=== PATIENT | female | born 1940 | race Two or more races ===

== ENCOUNTER 2024-10-03 14:31 | Inpatient (IN) | payer OTHER, MEDICAID ==
[~2024-10-03] VITALS: Ht 160 cm; Wt 78.6 kg
[~2024-10-03 14:31] MED LIST: ATOR80TA PO; CARV3.1240 PO; DOCU-94 PO; ERGO1CAP23 PO; HYDR-4902 PO; HYDR25TA4 PO; LISI20TA56 PO; OMEP-448 PO; SERT-206 PO
[2024-10-03 14:47] VITALS: PULSE 69; RESP 21; O2SAT 93
--- NOTE | 2024-10-03 14:48 | ED.PDOC ---
History of Present Illness HPI Comments 84-year-old female who comes in with chief complaint of generalized weakness the patient had blood drawn on 10/03 and the patient was found to have a low sodium of 125. The patient was stating that she is having some weak arms for the past three days. She did also have a couple of episodes of diarrhea. She is also complaining of some mild right-sided flank pain. The patient was able to give us their entire medical history. She states that the flank pain started about three months ago. Time Seen by MD: 14:36 Reviewed Notes: Nurses Notes, Medications, Allergies (No allergies to medications) Allergies: Coded Allergies: NO KNOWN ALLERGIES (Unverified , 10/03/24) Information Source: Patient (To medications), Emergency Med Personnel Mode of Arrival: EMS Severity: Moderate Timing: Days Duration: Since onset Prehospital treatment: None Associated signs and symptoms No chest pain or shortness for breath but the patient was having some generalized weakness Past Medical History PAST MEDICAL HISTORY: High Lipids Surgical History: Hysterectomy CNA INSTRUCTOR History: No Pertinent CNA INSTRUCTOR History Family History Family History: Reviewed,noncontributory to illness Social History Smoker: Non-Smoker Alcohol: Denies ETOH Use Drugs: Denies Drug Use Lives In: [facility] Constitutional: reports: weakness; denies: chills, diaphoresis, fatigue, fever, malaise, sweats, others EENTM: denies: blurred vision, double vision, ear bleeding, ear discharge, ear drainage, ear pain, ear ringing, eye pain, eye redness, hearing loss, mouth pain, mouth swelling, nasal discharge, nose bleeding, nose congestion, nose p ain, photophobia, tearing, throat pain, throat swelling, voice changes, others Respiratory: denies: cough, hemoptysis, orthopnea, SOB at rest, shortness of breath, SOB with excertion, stridor, wheezing, others Cardiovascular: denies: chest pain, dizzy spells, diaphoresis, Dyspnea on exertion, edema, irregular heart beat, left arm pain, lightheadedness, palpitations, PND, syncope, others Gastrointestinal: reports: diarrhea; denies: abdomen distended, abdominal pain, blood streaked bowels, constipated, dysphagia, difficulty swallowing, hematemesis, melena, nausea, poor appetite, poor fluid intake, rectal bleeding, rectal pain, vomiting, others Genitourinary: denies: abnormal vagina bleeding, burning, dyspareunia, dysuria, flank pain, frequency, hematuria, incontinence, pain, , vagina discharge, urgency, others Neurological: denies: dizziness, fainting, headache, left sided numbness, left sided weakness, numbness, paresthesia, pre-existing deficit, right sided numbness, right sided weakness, seizure, speech problems, tingling, tremors, weakness, others Musculoskeletal: denies: back pain, gout, joint pain, joint swelling, muscle pain, muscle stiffness, neck pain, others Integumetry: denies: bruises, change in color, change in hair/nails, dryness, laceration, lesions, lumps, rash, wounds, others Allergic/Immunocompromised: denies: Difficulty Healing, Frequent Infections, Hives, Itching, others Hematologic/Lymphatic: denies: anemia, blood clots, easy bleeding, easy bruising, swollen glands, others Endocrine: denies: excessive hunger, excessive sweating, excessive thirst, excessive urination, flushing, intolerance to cold, intolerance to heat, unexpl ained weight gain, unexplained weight loss, others Psychiatric: denies: anxiety, bipolar disorder, depression, hopeless, panic disorder, schizophrenia, sleepless, suicidal, others Physical Exam General Appearance: Mild Distress, Obese HEENT: Normal ENT Inspection, Pharynx Normal, TMs Normal Neck: Full Range of Motion, Non-Tender, Normal, Normal Inspection Respiratory: Chest Non-Tender, Lungs Clear, No Accessory Muscle Use, No Respiratory Distress, Normal Breath Sounds Cardiovascular: No Edema, No JVD, No Murmur, No Gallop, Normal Peripheral Pulses, Regular Rate/Rhythm Breast Exam: Deferred Gastrointestinal: No Organomegaly, Non Tender, No Pulsatile Mass, Normal Bowel Sounds, Soft Genitalia: Deferred Pelvic: Deferred Rectal: Deferred Extremities: No calf tenderness, Normal capillary refill, Normal inspection, Normal range of motion, Non-tender, No pedal edema Musculoskeletal : Apperance: Normal Neurologic: Alert, busser II-XII nml as Tested, Motor Weakness, Normal Affect, Normal Mood, No Sensory Deficits Cerebellar Function: Normal Reflexes: Normal Skin: Dry, Normal Color, Warm Lymphatic: No Adenopathy Was a procedure done? Was a procedure done?: No Differential Dx Considerations may include: Electrolyte imbalance, hyponatremia, dehydration X-Ray, Labs, Meds, VS Vital Signs Date Time Temp Pulse Resp B/P (MAP) Pulse Ox O2 Delivery O2 Flow Rate FiO2 10/03/24 15:17 97.4 67 18 127/74 (91) 98 10/03/24 14:47 69 21 134/72 (92) 93 10/03/24 14:47 69 21 93 Nasal Cannula* 2 28 Lab Test 10/03/24 14:54 Range/Units White Blood Count Pending Red Blood Count Pending Hemoglobin Pending Hematocrit Pending Mean Corpuscular Volume Pending Mean Corpuscular Hemoglobin Pending Mean Corpuscular Hemoglobin Concent Pending Red Cell Distribution Width Pending Platelet Count Pending Mean Platelet Volume Pending Neutrophils (%) (Auto) Pending Lymphocytes (%) (Auto) Pending Monocytes (%) (Auto) Pending Basophils (%) (Auto) Pending Neutrophils # (Auto) Pending Lymphocytes # (Auto) Pending Monocytes # (Auto) Pending Sodium Level 127 L 136-145 mmol/L Potassium Level 4.4 3.5-5.1 mmol/L Chloride Level 94 L 98-107 mmol/L Carbon Dioxide Level 30 20-31 mmol/L Anion Gap 3 L 5-15 Blood Urea Nitrogen 24 H 9-23 mg/dL Creatinine 1.26 H 0.550-1.02 mg/dL Glomerular Filtration Rate Calc 42 >90 mL/min BUN/Creatinine Ratio 19.0 10.0-20.0 Serum Glucose 118 H 74-106 mg/dL Calcium Level 9.9 8.7-10.4 mg/dL IV Hep-Lock was established The patient's chemistry panel shows hyponatremia at 127 The BUN is 24 and the creatinine is 1.26 A renal ultrasound was done which shows: IMPRESSION: 1. Small 1.2 cm left renal cysts. 2. There is no sonographic evidence of nephrolithiasis or hydronephrosis. At this time, the patient is being admitted Time of 1ST Reevaluation: 14:47 Reevaluation 1ST: Unchanged Patient Education/Counseling: Diagnosis, Treatment, Prognosis Family Education/Counseling: No Family Present Departure 1 Departure Time of Disposition: 16:41 Impression: Primary Impression: Hyponatremia Additional Impression: Generalized weakness Disposition: 09 ADMITTED INPATIENT Admit to: Tele Condition: Fair Critical Care Note Critical Care Time?: No Stability Stability form required: Yes Unstable for transfer: Telemetry monitoring (Telemetry monitoring required), ED Physician Assesment (Clinical assesment) Heart Score Heart Score: Heart Score Response (Comments) Value History N/A 0 EKG N/A 0 Age N/A 0 Risk Factors N/A 0 Troponin N/A 0 Total 0 JALEN DRISCOLL MD Oct 03, 2024 14:48
[2024-10-03 15:22] LABS: Potassium 4.4 mmol/L (3.5-5.1)
[2024-10-03 15:23] LABS: Anion Gap 3 (5-15); Calcium 9.9 mg/dL (8.7-10.4); Carbon Dioxide 30 mmol/L (20-31)
[2024-10-03 15:33] LABS: Blood Urea Nitrogen 24 mg/dL (9-23); Chloride 94 mmol/L (98-107); Glucose 118 mg/dL (74-106); Sodium 127 mmol/L (136-145)
--- NOTE | 2024-10-03 15:50 | DVH ---
RENAL ULTRASOUND CLINICAL HISTORY: RT FLANK PAIN TECHNIQUE: Multiple ultrasound images of the kidneys and bladder were obtained. COMPARISON: None FINDINGS: The right kidney measures 8.7 cm in length. The left kidney measures 9.0 cm. There is a 1.2 cm left r enal cyst. There is no sonographic evidence of nephrolithiasis or hydronephrosis. The bladder appears within normal limits with prevoid volume measuring 101 cc. IMPRESSION: 1. Small 1.2 cm left renal cysts. 2. There is no sonographic evidence of nephrolithiasis or hydronephrosis. HS:Y
[2024-10-03 16:59] LABS: Basophils # (auto) 0 10 ^3/uL (0-0.2); Basophils % (auto) 0.9 % (0.0-2.0); Eosinophils # (auto) 0.1 10 ^3/uL (0-0.8); Eosinophils % (auto) 2.5 % (0.0-7.0); Hematocrit 29.4 % (36.0-46.0); Hemoglobin 9.6 g/dL (12.2-16.2); Lymphocytes # (auto) 1.3 10 ^3/uL (0.4-5.4); Lymphocytes % (auto) 25.2 % (10.0-50.0); Mean Corpuscular Hemoglobin 26.9 pg (28.0-32.0); Mean Corpuscular Hgb Conc. 32.6 g/dL (32.0-36.0); Mean Corpuscular Volume 82.8 fL (80.0-100.0); Monocytes # (auto) 0.4 10 ^3/uL (0-1.3); Monocytes % (auto) 8.8 % (0.0-12.0); Neutrophils # (auto) 3.2 10 ^3/uL (1.6-8.6); Neutrophils % (auto) 62.6 % (37.0-80.0); Nucleated Red Blood Cells % 0.1 %; Platelet Count (auto) 219 10^3/uL (140-450); Red Blood Cells 3.55 10^6/uL (4.0-5.20); Red Cell Distribution Width 16.4 % (11.8-14.3); White Blood Cell 5.1 10^3/uL (4.4-10.8)
[2024-10-03] MEDS: SODIUM CHLORIDE 0.9% 500 ML IV ONE (17:40)
[2024-10-03 19:26] LABS: Urine Amorphous Crystal FEW /hpf (None Seen); Urine Bacteria FEW /hpf (None Seen); Urine Blood Negative /uL (Negative); Urine Clarity Clear (Clear); Urine Color Light-Yellow (Yellow); Urine Protein, UAD Negative (Negative); Urine Squamous Epithelial Cell FEW /hpf (<5); Urine Urobilinogen Normal (Negative); Urine WBC 6 /hpf (0 - 5)
[2024-10-03] MEDS: HYDROcodone-ACET 5/325MG TAB PO ONE (19:45)
[2024-10-03 20:00] VITALS: PULSE 70; RESP 18; O2SAT 94
[2024-10-03] MEDS ORDERED: MORPHINE SULFATE INJ 2 MG/ml SYRG IV PRN (21:30)
[2024-10-03] MEDS ORDERED: ONDANSETRON HCL 4 MG/2 ML VIAL IV PRN (21:30)
[2024-10-03] MEDS ORDERED: NITROGLYCERIN 0.4 MG SL TAB SL PRN (21:30)
[2024-10-03] MEDS ORDERED: FUROSEMIDE 20 MG/2 ML VIAL IV ONE (21:30)
--- NOTE | 2024-10-03 21:31 | DVHHPRES ---
History of Present Illness Resident Creating Document: EUGENE POON RESIDENT History of Present Illness This is a 84-year-old wheel chair bound female with past medical history of hypertension, hyperlipidemia, bronchial asthma, arthritis presented to the ED from [place] post acute care due to abnormal lab. According to the patient she underwent lab work on 10/02/2024 and revealed low-sodium 125 that prompted this visit. The patient mentioned few episodes of diarrhea two days ago and after that feeling generalized weakness for last 2 days. The patient denies dizziness, headache, chest pain, productive cough, abdominal pain, nausea, vomiting, dysuria or any change in bowel habit. Past Medical History Hypertension, hyperlipidemia, bronchial asthma, arthritis Past Surgical History Lt knee surgery Family History None Smoke: No ALCOHOL: none Drugs: None Lives: Alf Review of Systems Constitutional: No: Fever, Chills, Sweats, Malaise, Other Eyes: No: Pain, Vision change, Conjunctivae inflammation, Eyelid inflammation, Other, Redness ENT: No: Ear pain, Ear discharge, Nose pain, Nose discharge, Nose congestion, Mouth pain, Mouth swelling, Throat pain, Throat swelling, Other Respiratory: Shortness of breath; No: Cough, Dry, SOB with excertion, Wheezing, Hemoptysis, Pleuritic Pain, Sputum, Wheezing, Other Cardiovascular: No: Chest Pain, Palpitations, Orthopnea, Paroxysmal Noc. Dyspnea, Edema, Lt Headedness, Other Gastrointestinal: Diarrhea; No: Nausea, Vomiting, Abdominal Pain, Constipation, Melena, Hematochezia, Other Genitourinary: No Dysuria, No Frequency, No Incontinence, No Hematuria, No Retention, No Other Musculoskeletal: No: other, neck pain, shoulder pain, arm pain, back pain, hand pain, leg pain, foot pain Skin: No: Rash, Lesions, Jaundice, Bruising, Other Neurological: No: Weakness, Numbness, Incoordination, Change in speech, Confusion, Seizures, Other Allergies: Coded Allergies: NO KNOWN ALLERGIES (Unverified , 10/03/24) Medications Current Medications Medications Dose Ordered Sig/Nuha Route Start Time Stop Time Status Last Admin Dose Admin Sodium Chloride 10 ml Q8HR IV 10/03/24 22:00 UNV Ondansetron HCl 4 mg Q4HP PRN IV 10/03/24 21:30 UNV Acetaminophen 650 mg Q6HP PRN PO 10/03/24 21:30 UNV Nitroglycerin 0.4 mg Q5MINP PRN SL 10/03/24 21:30 UNV Morphine Sulfate 2 mg Q30M PRN IV 10/03/24 21:30 UNV Albuterol 2.5 mg Q4HPRN NEB 10/04/24 02:00 UNV Ipratropium [place] 0.5 mg Q4HPRN NEB 10/04/24 02:00 UNV Exam Vital Signs Vital Signs Date Time Temp Pulse Resp B/P (MAP) Pulse Ox O2 Delivery O2 Flow Rate FiO2 10/03/24 20:00 70 18 94 Nasal Cannula* 2 28 10/03/24 19:00 132/69 (90) 10/03/24 16:00 97.9 97.9 Exam Physical examination: General Appearance: Alert, Oriented X3, Cooperative, No acute distress HEENT: Atraumatic, PERRLA, EOMI, Mucous membrane moist/pink Respiratory: Congested chest, bilateral wheezing and crackles Cardiovascular: Regular rate, Normal S1, Normal S2, No murmurs, no chest wall tenderness Abdominal: Normal bowel sounds, Soft, No tenderness, No hepatospenomegaly, No masses Extremities: No clubbing, No cyanosis, No edema, Normal pulses, No tenderness/swelling Skin: No rashes, No breakdown, No significant lesion Neuro: Normal speech, Strength at 5/5 X4 ext, Normal tone, Sensation intact. Psych/Mental Status: Mental status NL, Mood NL Labs/Xrays Labs Test 10/03/24 18:32 10/03/24 16:35 10/03/24 14:54 Range/Units Urine Color Light-yellow Yellow Urine Clarity Clear Clear Urine pH 7.0 5.0-9.0 Urine Specific [place] 1.010 1.001-1.035 Urine Protein Negative Negative Urine Ketones Negative Negative Urine Blood Negative Negative /uL Urine Nitrite Negative Negative Urine Bilirubin Negative Negative Urine Urobilinogen Normal Negative mg/dL Urine Leukocyte Esterase Negative Negative /uL Urine RBC None seen 0 - 4 /hpf Urine WBC 6 0 - 5 /hpf Urine Squamous Epithelial Cells Few <5 /hpf Urine Amorphous Crystals Few None Seen /hpf Urine Bacteria Few H None Seen /hpf Urine Osmolality 352 mOsm/kg Urine Sodium 66 40-220 mmol/L Urine Glucose Normal Normal mg/dL White Blood Count 5.1 4.4-10.8 10^3/uL Red Blood Count 3.55 L 4.0-5.20 10^6/uL Hemoglobin 9.6 L 12.2-16.2 g/dL Hematocrit 29.4 L 36.0-46.0 % Mean Corpuscular Volume 82.8 80.0-100.0 fL Mean Corpuscular Hemoglobin 26.9 L 28.0-32.0 pg Mean Corpuscular Hemoglobin Concent 32.6 32.0-36.0 g/dL Red Cell Distribution Width 16.4 H 11.8-14.3 % Platelet Count 219 140-450 10^3/uL Mean Platelet Volume 7.2 6.9-10.8 fL Neutrophils (%) (Auto) 62.6 37.0-80.0 % Lymphocytes (%) (Auto) 25.2 10.0-50.0 % Monocytes (%) (Auto) 8.8 0.0-12.0 % Eosinophils (%) (Auto) 2.5 0.0-7.0 % Basophils (%) (Auto) 0.9 0.0-2.0 % Neutrophils # (Auto) 3.2 1.6-8.6 10 ^3/uL Lymphocytes # (Auto) 1.3 0.4-5.4 10 ^3/uL Monocytes # (Auto) 0.4 0-1.3 10 ^3/uL Eosinophils # (Auto) 0.1 0-0.8 10 ^3/uL Basophils # (Auto) 0 0-0.2 10 ^3/uL Nucleated Red Blood Cells 0.1 % Sodium Level 127 L 136-145 mmol/L Potassium Level 4.4 3.5-5.1 mmol/L Chloride Level 94 L 98-107 mmol/L Carbon Dioxide Level 30 20-31 mmol/L Anion Gap 3 L 5-15 Blood Urea Nitrogen 24 H 9-23 mg/dL Creatinine 1.26 H 0.550-1.02 mg/dL Glomerular Filtration Rate Calc 42 >90 mL/min BUN/Creatinine Ratio 19.0 10.0-20.0 Serum Glucose 118 H 74-106 mg/dL Serum Osmolality 273 L 278-298 mOsm/kg Calcium Level 9.9 8.7-10.4 mg/dL Assessment/Plan Assessment/Plan Assessment and plan: # Hypervolemic hyponatremia, rule out CHF - Chest x-ray revealed pulmonary vascular congestion - BNP is not elevated - Low serum osmolality and urine sodium >40 - Ordered echo - IV Lasix 20 mg once - Monitor BMP # SUMIT likely secondary to hemodynamically mediated/ VMN - Patient was given IV normal saline 500 mL bolus - Monitor BMP # Prediabetes, HbA1C 6.1 - Counseled patient regarding weight loss, low carb diet, and lifestyle modification . Goal of care discussed with the patient for more than 20 minutes full code Plan of treatment discussed with Dr. Edgar Plan discussed with: Patient, Other My Orders Orders - EUGENE POON RESIDENT Procedure Category Date Status Time Admit ADMIT 10/03/24 Transmitted 21:21 Sodium Chloride Lock PHA 10/03/24 Logged (Saline Lock Ns) 22:00 Oxygen Per Hour RT 10/03/24 Transmitted 21:21 Ondansetron Hcl [facility] 10/03/24 Logged (Zofran) 21:30 Fall Risk Precautions [facility] 10/03/[address] 21:21 Pt Request For Service PT 10/03/24 Logged 21:21 Echo 2d Mode Cardiac US 10/03/24 Logged DOP 21:21 Acetaminophen Tablet PHA 10/03/24 Logged (Tylenol Tablet) 21:30 Nitroglycerin PHA 10/03/24 Logged Sublingual (Ntrostat 21:30 Morphine Sulfate PHA 10/03/24 Logged Injection 21:30 Oxygen By Nasal RT 10/03/24 Transmitted Cannula 21:21 Stat Ekg For Chest [facility] 10/03/24 In Process Pain 21:21 Notify Of Changes [facility] 10/03/24 In Process From Base 21:21 Blade Balancer For [facility] 10/03/24 In Process 24 Hours 21:21 Emergency Dysrhythmia [facility] 10/03/24 In Process Protocol 21:21 Rhythm Strips Once [facility] 10/03/24 In Process Every Shift 21:21 Code Status CODE 10/03/24 Transmitted 21:24 Chest Xray 1 View XY 10/03/24 Logged 21:24 B-Type Natriuretic LAB 10/03/24 Logged Peptide 21:24 Urine Creatinine LAB 10/03/24 Logged 21:24 Urine Protein LAB 10/03/24 Logged 21:24 Urine Sodium LAB 10/03/24 Logged 21:24 Urinalysis LAB 10/03/24 Logged 21:24 Albuterol Medneb PHA 10/04/24 Logged (Ventolin Medneb) 02:00 Ipratropium Medneb PHA 10/04/24 Logged (Atrovent Medneb) 02:00 Furosemide Injection PHA 10/03/24 Logged (Lasix Injection) 21:30 Date of Service: Oct 03, 2024 Billing Provider: PRAVEEN EDGAR MD Common Visit Codes: [id number] INP/OBS CARE (HIGH) Secondary Visit Codes: [id number] CARE PLAN 30 MINUTES EUGENE POON RESIDENT Oct 03, 2024 21:31 PRAVEEN EDGAR MD Oct 04, 2024 21:04
[2024-10-03] MEDS: SODIUM CHLOR 0.9% PF (SALINE LOCK) 10ML VIAL/SYR IV SCH (22:03)
--- NOTE | 2024-10-03 22:09 | DVH ---
CHEST RADIOGRAPH Indication: shortness of breath Technique: Single frontal view of the chest was obtained Comparison: None Findings/ IMPRESSION: Enlarged cardiomediastinal silhouette with adjacent reticular opacification which may represent pulmo nary vascular congestion with other etiologies not excluded. No pleural effusions. No pneumothorax.
[2024-10-03 22:10] VITALS: BP 132/69; PULSE 69; RESP 18; O2SAT 98
[2024-10-03] MEDS: MELATONIN 5 MG TAB PO ONE (22:27)
[2024-10-03 22:31] LABS: LDL Cholesterol 30 mg/dL (< 100); Triglycerides 63 mg/dL (< 150)
[2024-10-03 22:33] LABS: Cholesterol 119 mg/dL (< 200)
[2024-10-03 22:37] LABS: HDL Cholesterol 68 mg/dL (40-59)
[2024-10-03 22:44] LABS: Potassium 4.4 mmol/L (3.5-5.1)
[2024-10-03 22:45] LABS: Anion Gap 6 (5-15); Carbon Dioxide 25 mmol/L (20-31)
[2024-10-03 22:46] LABS: Calcium 9.4 mg/dL (8.7-10.4)
[2024-10-03 22:58] LABS: Blood Urea Nitrogen 26 mg/dL (9-23); Chloride 98 mmol/L (98-107); Glucose 107 mg/dL (74-106); Sodium 129 mmol/L (136-145)
[2024-10-04] VITALS (9 sets, daily range): BP systolic 112–148; BP diastolic 52–93; PULSE 66–87; RESP 18–20; TEMP 98–98.7; O2SAT 92–98
[2024-10-04] MEDS: NITROGLYCERIN 0.4 MG SL TAB SL ONE
[2024-10-04] MEDS ORDERED: MORPHINE SULFATE INJ 2 MG/ml SYRG IV ONE
[2024-10-04] MEDS: FUROSEMIDE 20 MG/2 ML VIAL IV ONE (00:44)
[2024-10-04] MEDS ORDERED: LISI2.5T47 PO (01:34)
[2024-10-04] MEDS ORDERED: SERT25TA84 PO (01:34)
[2024-10-04] MEDS ORDERED: ALBUTEROL SULF 2.5 MG/0.5ML(0.5%) NEB SOLN NEB SCH (02:00)
[2024-10-04] MEDS ORDERED: IPRATROPIUM BROM 0.5 MG/2.5ML INH SOL NEB SCH (02:00)
[2024-10-04 06:09] LABS: Urine WBC None Seen /hpf (0 - 5)
[2024-10-04 06:10] LABS: Basophils # (auto) 0.1 10 ^3/uL (0-0.2); Eosinophils # (auto) 0.1 10 ^3/uL (0-0.8); Eosinophils % (auto) 2.7 % (0.0-7.0); Hematocrit 28.8 % (36.0-46.0); Hemoglobin 9.7 g/dL (12.2-16.2); Lymphocytes # (auto) 1.6 10 ^3/uL (0.4-5.4); Lymphocytes % (auto) 33.3 % (10.0-50.0); Mean Corpuscular Hemoglobin 27.3 pg (28.0-32.0); Mean Corpuscular Hgb Conc. 33.6 g/dL (32.0-36.0); Mean Corpuscular Volume 81.4 fL (80.0-100.0); Monocytes # (auto) 0.5 10 ^3/uL (0-1.3); Monocytes % (auto) 10.3 % (0.0-12.0); Neutrophils # (auto) 2.6 10 ^3/uL (1.6-8.6); Neutrophils % (auto) 52.7 % (37.0-80.0); Nucleated Red Blood Cells % 0.1 %; Platelet Count (auto) 232 10^3/uL (140-450); Red Blood Cells 3.53 10^6/uL (4.0-5.20); Red Cell Distribution Width 16.4 % (11.8-14.3); White Blood Cell 4.9 10^3/uL (4.4-10.8)
[2024-10-04 06:15] LABS: Alanine Aminotransferase 17 U/L (7-40); Albumin 3.7 g/dL (3.2-4.8); Anion Gap 5 (5-15); Aspartate Aminotransferase 14 U/L (13-40); Bilirubin, Total 0.4 mg/dL (0.2-1.0); Blood Urea Nitrogen 22 mg/dL (9-23); Calcium 9.9 mg/dL (8.7-10.4); Carbon Dioxide 30 mmol/L (20-31); Glucose 98 mg/dL (74-106); Potassium 3.7 mmol/L (3.5-5.1); Total Protein 6.1 g/dL (5.7-8.2)
[2024-10-04 06:25] LABS: Urine Bacteria FEW /hpf (None Seen); Urine Blood 1+ /uL (Negative); Urine Clarity Clear (Clear); Urine Protein, UAD Negative (Negative); Urine Specific Gravity 1.005 (1.001-1.035); Urine Squamous Epithelial Cell FEW /hpf (<5); Urine Urobilinogen Normal (Negative); Urine pH 6.5 (5.0-9.0)
[2024-10-04 06:26] LABS: Protein, Urine 7.7 mg/dL (1-14)
[2024-10-04 06:29] LABS: Alkaline Phosphatase 135 U/L (46-116); Chloride 96 mmol/L (98-107); Sodium 131 mmol/L (136-145)
[2024-10-04 06:29] LABS: Creatinine, Urine 10.84 mg/dL (30.0-125.0)
[2024-10-04 06:30] LABS: Urine Color STRAW (Yellow)
--- NOTE | 2024-10-04 11:30 | DVHPN2 ---
Subjective looks rested/denies any cough/had fungal pneumonia 3 weeks back/no weakness or numbness/no shortness of breath Changes from previous H/P or p: No Changes Eyes: No Pain, No Vision change, No Conjunctivae inflammation, No Eyelid inflammation, No Other, No Redness ENT: No Ear pain, No Ear discharge, No Nose pain, No Nose discharge, No Nose congestion, No Mouth pain, No Mouth swelling, No Throat pain, No Throat swelling, No Other Cardiovascular: No Chest Pain, No Palpitations, No Orthopnea, No Paroxysmal Noc. Dyspnea, No Edema, No Lt Headedness, No Other Respiratory: No Cough, No Dry; Shortness of breath; No SOB with excertion, No Wheezing, No Hemoptysis, No Pleuritic Pain, No Sputum, No Other Gastrointestinal: No Nausea, No Vomiting, No Abdominal Pain; Diarrhea; No Constipation, No Melena, No Hematochezia, No Other Genitourinary: No Dysuria, No Frequency, No Incontinence, No Hematuria, No Retention, No Other Musculoskeletal: No other, No neck pain, No shoulder pain, No arm pain, No back pain, No hand pain, No leg pain, No foot pain Skin: No Rash, No Lesions, No Jaundice, No Bruising, No Other Objective Vitals Vital Signs Date Time Temp Pulse Resp B/P (MAP) Pulse Ox O2 Delivery O2 Flow Rate FiO2 10/04/24 09:10 98.7 72 18 143/76 (98) 97 98.7 10/04/24 00:10 Nasal Cannula* 1 24 Intake/Output Intake and Output 10/04/24 07:00 Intake Total 300 ml Output Total 2050 ml Balance -1750 ml Intake Oral 300 ml Output Urine Total 2050 ml General Appearance: Alert, Oriented X3, No acute distress Lungs: Clear to auscultation, Normal air movement Cardiovascular: Regular rate, Normal S1, Normal S2 Abdomen: Normal bowel sounds, Soft, No tenderness, No hepatospenomegaly Musculoskeletal: Normal sensory function, Normal motor function Neuro: Normal speech, Strength at 5/5 X4 ext, Sensation intact, Cranial nerves 3-12 NL Psych/Mental Status: Mental status NL Medications Current Medications Medications Dose Ordered Sig/Nuha Route Start Time Stop Time Status Last Admin Dose Admin Sodium Chloride 10 ml Q8HR IV 10/03/24 22:00 10/04/24 05:29 10 ML Acetaminophen 650 mg Q6HP PRN PO 10/03/24 21:30 Sodium Chloride 1,000 ml @ 60 mls/hr [id number] IV 10/04/24 10:45 Laboratory Results Laboratory Tests 10/04/24 05:35 Chemistry Test 10/03/24 14:54 10/03/24 21:45 10/04/24 05:35 Calcium Level 9.9 mg/dL (8.7-10.4) 9.4 mg/dL (8.7-10.4) 9.9 mg/dL (8.7-10.4) Albumin 3.7 g/dL (3.2-4.8) Magnesium Level 2.0 mg/dL (1.6-2.6) Total Protein 6.1 g/dL (5.7-8.2) Lipid panel Test 10/03/24 21:45 Cholesterol Level 119 mg/dL (< 200) HDL Cholesterol 68 mg/dL (40-59) H Triglycerides Level 63 mg/dL (< 150) Cardiac Markers Test 10/03/24 16:35 10/04/24 05:35 B-Type Natriuretic Peptide 64.52 pg/mL (0-100) 75.69 pg/mL (0-100) LFT Test 10/04/24 05:35 Alanine Aminotransferase (ALT) 17 U/L (7-40) Alkaline Phosphatase 135 U/L (46-116) H Aspartate Amino Transferase (AST) 14 U/L (13-40) Total Bilirubin 0.4 mg/dL (0.2-1.0) HgA1c, TSH Test 10/03/24 21:45 Hemoglobin A1c 6.1 % A1C (<5.7) H Urinalysis Test 10/03/24 18:32 10/04/24 05:38 Urine Amorphous Crystals Few /hpf (None Seen) Urine Osmolality 352 mOsm/kg Urine Color Straw (Yellow) Urine Clarity Clear (Clear) Urine pH 6.5 (5.0-9.0) Urine Specific [place] 1.005 (1.001-1.035) Urine Protein Negative (Negative) Urine Ketones Negative (Negative) Urine Blood 1+ /uL (Negative) H Urine Nitrite Negative (Negative) Urine Bilirubin Negative (Negative) Urine Urobilinogen Normal mg/dL (Negative) Urine Leukocyte Esterase Negative /uL (Negative) Urine RBC 3 /hpf (0 - 4) Urine WBC None seen /hpf (0 - 5) Urine Squamous Epithelial Cells Few /hpf (<5) Urine Bacteria Few /hpf (None Seen) H Urine Creatinine 10.84 mg/dL (30.0-125.0) L Urine Sodium 96 mmol/L (40-220) Urine Glucose Normal mg/dL (Normal) Urine Total Protein 7.7 mg/dL (1-14) Labs and/or images reviewed: Labs reviewed by me, Image(s) reviewed by me Assessment/Plan Assessment/Plan hyponatremia- secondary to dehydration/hydrate and recheck/clinically no signs of fluid overload/ htn- normotensive today chronic depression- stable advised if has reccurrent hyponatremia- may have to switch her ssri to different class of drugs Plan discussed with: Patient, Other My Orders Orders - MARCOS RÍOS MD Procedure Category Date Status Time Sodium Chloride 0.9% PHA 10/04/24 In Process 10:45 Basic Metabolic Panel LAB 10/05/24 Verified 04:00 Free T4 (Free LAB 10/05/24 Verified Thyroxine) 04:00 Thyroid Stimulating LAB 10/05/24 Verified Hormone 04:00 Pt Request For Service PT 10/04/24 Logged 10:46 Regular Diet DIET 10/04/24 Transmitted Lunch Date of Service: Oct 04, 2024 Billing Provider: MARCOS RÍOS MD Common Visit Codes: [id number] INP/OBS CARE(MOD) MARCOS RÍOS MD Oct 04, 2024 11:30
[2024-10-04] MEDS: ACETAMINOPHEN 325 MG TAB PO PRN (11:40)
[2024-10-04] MEDS: SODIUM CHLORIDE 0.9% 1,000 ML IV SCH (11:40)
[2024-10-04] MEDS: HYDROcodone-ACET 5/325MG TAB PO ONE (17:54)
--- NOTE | 2024-10-04 19:43 | DVHSR ---
APPROVED REPORT EXAM: LIMITED Two-dimensional echocardiogram with contrast. Blood Pressure: 120/65 mmHg INDICATION SOB RISK FACTORS Obesity: Height: 5'3, Weight: 285 DIMENSIONS LVDd (3.8-5.7cm)LA (2D)3.8 (1.9-4.0cm)Aortic Root (2.0-3.7cm) EF (%) (55-70%)Rt. Atrium2.4 (1.9-4.0cm)Asc. Aorta cm Mitral Valve MitralMitral Stenosis E wave0.72m/sMV Mean GR.mmHg A wave1.30m/sMV Peak GR.mmHg E/A ratio0.62D MVAcm2 DECEL [id number] 1/2 Timems Aortic Valve Aortic ValveAortic Stenosis V11.10m/Ciara Mean GR.4mmHg V21.36m/Ciara Peak GR.7mmHg LVOT Diameter1.7 (1.8-2.4cm)Doppler AVA1.83cm2 Other Information Quality : Technically LimitedRhythm : Technically limited study due to patient position.patient moving. Conclusion MILD LVH AND MILD LV DIASTOLIC DYSFUNCTION LV EJECTION FRACTION IS 65% MODERATELY CALCIFIED AORTIC LEAFLETS BUT NO STENOSIS CALCIFIED MITRAL LEAFLETS NORMAL RV FUNCTION NO EFFUSION
[2024-10-04] MEDS: MELATONIN 5 MG TAB PO ONE (21:06)
[2024-10-05] VITALS (8 sets, daily range): BP systolic 119–156; BP diastolic 65–87; PULSE 18–96; RESP 17–94; TEMP 97.6–98.8; O2SAT 94–96
[2024-10-05 07:13] LABS: Potassium 3.7 mmol/L (3.5-5.1)
[2024-10-05 07:14] LABS: Anion Gap 3 (5-15); Carbon Dioxide 30 mmol/L (20-31)
[2024-10-05 07:15] LABS: Calcium 10.1 mg/dL (8.7-10.4)
[2024-10-05 07:19] LABS: BUN/Creatinine Ratio 18.2 (10.0-20.0); Blood Urea Nitrogen 20 mg/dL (9-23); Glucose 100 mg/dL (74-106)
[2024-10-05 07:23] LABS: Chloride 97 mmol/L (98-107); Sodium 130 mmol/L (136-145)
[2024-10-05] MEDS: SODIUM CHLORIDE 0.9% 1,000 ML IV SCH (09:15)
[2024-10-05] MEDS: HYDROcodone-ACET 5/325MG TAB PO PRN (16:19)
--- NOTE | 2024-10-05 18:03 | DVHPN2 ---
Subjective looks rested/denies any cough/had fungal pneumonia 3 weeks back/no weakness or numbness/no shortness of breath/declining ivf Changes from previous H/P or p: No Changes Eyes: No Pain, No Vision change, No Conjunctivae inflammation, No Eyelid inflammation, No Other, No Redness ENT: No Ear pain, No Ear discharge, No Nose pain, No Nose discharge, No Nose congestion, No Mouth pain, No Mouth swelling, No Throat pain, No Throat swelling, No Other Cardiovascular: No Chest Pain, No Palpitations, No Orthopnea, No Paroxysmal Noc. Dyspnea, No Edema, No Lt Headedness, No Other Respiratory: No Cough, No Dry; Shortness of breath; No SOB with excertion, No Wheezing, No Hemoptysis, No Pleuritic Pain, No Sputum, No Other Gastrointestinal: No Nausea, No Vomiting, No Abdominal Pain; Diarrhea; No Constipation, No Melena, No Hematochezia, No Other Genitourinary: No Dysuria, No Frequency, No Incontinence, No Hematuria, No Retention, No Other Musculoskeletal: No other, No neck pain, No shoulder pain, No arm pain, No back pain, No hand pain, No leg pain, No foot pain Skin: No Rash, No Lesions, No Jaundice, No Bruising, No Other Objective Vitals Vital Signs Date Time Temp Pulse Resp B/P (MAP) Pulse Ox O2 Delivery O2 Flow Rate FiO2 10/05/24 13:00 98.1 70 20 144/86 (105) 96 98.1 10/05/24 08:00 Room Air* 0 21 Intake/Output Intake and Output 10/05/24 07:00 Intake Total 675 ml Output Total 2950 ml Balance -2275 ml Intake Oral 675 ml Output Urine Total 2950 ml General Appearance: Alert, Oriented X3, No acute distress Lungs: Clear to auscultation, Normal air movement Cardiovascular: Regular rate, Normal S1, Normal S2 Abdomen: Normal bowel sounds, Soft, No tenderness, No hepatospenomegaly Musculoskeletal: Normal sensory function, Normal motor function Neuro: Normal speech, Strength at 5/5 X4 ext, Sensation intact, Cranial nerves 3-12 NL Psych/Mental Status: Mental status NL Medications Current Medications Medications Dose Ordered Sig/Nuha Route Start Time Stop Time Status Last Admin Dose Admin Sodium Chloride 10 ml Q8HR IV 10/03/24 22:00 10/05/24 14:00 10 ML Acetaminophen 650 mg Q6HP PRN PO 10/03/24 21:30 10/04/24 11:40 650 MG Sodium Chloride 1,000 ml @ 60 mls/hr [id number] IV 10/05/24 09:15 Acetaminophen/ Hydrocodone Bitart 1 tab Q6HPRN PRN PO 10/05/24 16:00 10/05/24 16:19 1 TAB Laboratory Results Laboratory Tests 10/04/24 05:35 10/05/24 06:27 Chemistry Test 10/05/24 06:27 Calcium Level 10.1 mg/dL (8.7-10.4) HgA1c, TSH Test 10/05/24 06:27 Thyroid Stimulating Hormone (TSH) 1.22 uIU/mL (0.55-4.78) Urinalysis Test 10/03/24 18:32 10/04/24 05:38 Urine Amorphous Crystals Few /hpf (None Seen) Urine Osmolality 352 mOsm/kg Urine Color Straw (Yellow) Urine Clarity Clear (Clear) Urine pH 6.5 (5.0-9.0) Urine Specific [place] 1.005 (1.001-1.035) Urine Protein Negative (Negative) Urine Ketones Negative (Negative) Urine Blood 1+ /uL (Negative) H Urine Nitrite Negative (Negative) Urine Bilirubin Negative (Negative) Urine Urobilinogen Normal mg/dL (Negative) Urine Leukocyte Esterase Negative /uL (Negative) Urine RBC 3 /hpf (0 - 4) Urine WBC None seen /hpf (0 - 5) Urine Squamous Epithelial Cells Few /hpf (<5) Urine Bacteria Few /hpf (None Seen) H Urine Creatinine 10.84 mg/dL (30.0-125.0) L Urine Sodium 96 mmol/L (40-220) Urine Glucose Normal mg/dL (Normal) Urine Total Protein 7.7 mg/dL (1-14) Labs and/or images reviewed: Labs reviewed by me, Image(s) reviewed by me Assessment/Plan Assessment/Plan hyponatremia- secondary to dehydration/hydrate and recheck/clinically no signs of fluid overload/ htn- normotensive today chronic depression- stable advised if has reccurrent hyponatremia- may have to switch her ssri to different class of drugs Plan discussed with: Patient, Other My Orders Orders - MARCOS RÍOS MD Procedure Category Date Status Time Sodium Chloride 0.9% PHA 10/05/24 In Process 09:15 Hydrocodone-Acet PHA 10/05/24 In Process 5/325mg Tab ([place] 16:00 Date of Service: Oct 05, 2024 Billing Provider: MARCOS RÍOS MD Common Visit Codes: [id number] INP/OBS CARE(MOD) MARCOS RÍOS MD Oct 05, 2024 18:03
[2024-10-05] MEDS: SERTRALINE HCL 50 MG TAB PO ONE (19:22)
[2024-10-06] VITALS (8 sets, daily range): BP systolic 117–143; BP diastolic 61–97; PULSE 70–104; RESP 17–20; TEMP 96.8–98.9; O2SAT 93–98
[2024-10-06 07:35] LABS: Anion Gap 6 (5-15); Carbon Dioxide 27 mmol/L (20-31); Potassium 3.8 mmol/L (3.5-5.1)
[2024-10-06 07:36] LABS: Calcium 9.8 mg/dL (8.7-10.4)
[2024-10-06 07:41] LABS: BUN/Creatinine Ratio 17.6 (10.0-20.0); Blood Urea Nitrogen 18 mg/dL (9-23); Glucose 101 mg/dL (74-106)
[2024-10-06 07:50] LABS: Sodium 130 mmol/L (136-145)
[2024-10-06 07:51] LABS: Chloride 97 mmol/L (98-107)
--- NOTE | 2024-10-06 10:57 | DVHINCON2 ---
Date of service: Oct 06, [address] Zavala Reason for Consultation Hyponatremia History of Present Illness Patient is 84-year-old female with past medical history of hyperlipidemia is admitted for abnormal lab with sodium was 125 mEq/L on admission. Nephrology is consulted for hyponatremia Past Medical History Hyperlipidemia Past Surgical History Hysterectomy Allergies: Coded Allergies: NO KNOWN ALLERGIES (Unverified , 10/03/24) Home Meds Reported Medications Sertraline Hcl (Zoloft) 25 Mg Tab, PO DAILY, #30 TAB 2 Refills 10/04/24 Hydrocodone-Acetaminophen (Hydrocodone Bitartrate/AC 5-325 mg) 1 Tab Tab, 1 TAB PO, TAB 10/04/24 Lisinopril (Lisinopril) 2.5 Mg Tab, 2.5 MG PO DAILY for 30 Days, MG 10/04/24 Current Medications Current Medications Medications (Trade) Dose Ordered Sig/Nuha Route PRN Reason Start Time Stop Time Status Last Admin Acetaminophen/ Hydrocodone Bitart ([place] 5/325MG Tab) 1 tab Q6HPRN PRN PO MODERATE PAIN (4-6 PAIN SCALE) 10/05/24 16:00 10/05/24 16:19 Sertraline HCl (Zoloft) 25 mg DAILY PO 10/06/24 10:00 Family History: Hypertension G8 FATHER Review of Systems All 12 item review of systems reviewed with the patient nonsignificant except what is mentioned in the history of present illness H&P Exam Vital Signs/I&O Vital Sign Date Time Temp Pulse Resp B/P (MAP) Pulse Ox O2 Delivery O2 Flow Rate FiO2 10/06/24 07:54 96.8 75 19 143/97 (112) 98 96.8 10/05/24 20:00 Room Air* 0 21 Intake and Output 10/05/24 10/06/24 19:00 07:00 Intake Total 556 ml 800 ml Output Total 650 ml 1100 ml Balance -94 ml -300 ml Intake Oral 556 ml 800 ml Output Urine Total 650 ml 1100 ml # Bowel Movements 3 Physical Exam Awake and alert Lungs clear to auscultation bilaterally Cardiac exam regular rate and rhythm GI soft nontender is normal Extremity 1+ edema Neuro nonfocal Labs/Diagnostic Data Labs/Diagnostic Data Laboratory Tests Test 10/06/24 06:32 10/05/24 06:27 10/04/24 05:38 10/04/24 05:35 Range/Units Sodium Level 130 L 130 L 131 L 136-145 mmol/L Potassium Level 3.8 3.7 3.7 3.5-5.1 mmol/L Chloride Level 97 L 97 L 96 L 98-107 mmol/L Carbon Dioxide Level 27 30 30 20-31 mmol/L Anion Gap 6 3 L 5 5-15 Blood Urea Nitrogen 18 20 22 9-23 mg/dL Creatinine 1.02 1.10 H 1.16 H 0.550-1.02 mg/dL Glomerular Filtration Rate Calc 54 49 46 >90 mL/min BUN/Creatinine Ratio 17.6 18.2 19.0 10.0-20.0 Serum Glucose 101 100 98 74-106 mg/dL Calcium Level 9.8 10.1 9.9 8.7-10.4 mg/dL Thyroid Stimulating Hormone (TSH) 1.22 0.55-4.78 uIU/mL Free Thyroxine (T4) Calculated 1.17 0.89-1.76 ng/dL Urine Color Straw Yellow Urine Clarity Clear Clear Urine pH 6.5 5.0-9.0 Urine Specific [place] 1.005 1.001-1.035 Urine Protein Negative Negative Urine Ketones Negative Negative Urine Blood 1+ H Negative /uL Urine Nitrite Negative Negative Urine Bilirubin Negative Negative Urine Urobilinogen Normal Negative mg/dL Urine Leukocyte Esterase Negative Negative /uL Urine RBC 3 0 - 4 /hpf Urine WBC None seen 0 - 5 /hpf Urine Squamous Epithelial Cells Few <5 /hpf Urine Bacteria Few H None Seen /hpf Urine Creatinine 10.84 L 30.0-125.0 mg/dL Urine Sodium 96 40-220 mmol/L Urine Glucose Normal Normal mg/dL Urine Total Protein 7.7 1-14 mg/dL White Blood Count 4.9 4.4-10.8 10^3/uL Red Blood Count 3.53 L 4.0-5.20 10^6/uL Hemoglobin 9.7 L 12.2-16.2 g/dL Hematocrit 28.8 L 36.0-46.0 % Mean Corpuscular Volume 81.4 80.0-100.0 fL Mean Corpuscular Hemoglobin 27.3 L 28.0-32.0 pg Mean Corpuscular Hemoglobin Concent 33.6 32.0-36.0 g/dL Red Cell Distribution Width 16.4 H 11.8-14.3 % Platelet Count 232 140-450 10^3/uL Mean Platelet Volume 7.1 6.9-10.8 fL Neutrophils (%) (Auto) 52.7 37.0-80.0 % Lymphocytes (%) (Auto) 33.3 10.0-50.0 % Monocytes (%) (Auto) 10.3 0.0-12.0 % Eosinophils (%) (Auto) 2.7 0.0-7.0 % Basophils (%) (Auto) 1.0 0.0-2.0 % Neutrophils # (Auto) 2.6 1.6-8.6 10 ^3/uL Lymphocytes # (Auto) 1.6 0.4-5.4 10 ^3/uL Monocytes # (Auto) 0.5 0-1.3 10 ^3/uL Eosinophils # (Auto) 0.1 0-0.8 10 ^3/uL Basophils # (Auto) 0.1 0-0.2 10 ^3/uL Nucleated Red Blood Cells 0.1 % Magnesium Level 2.0 1.6-2.6 mg/dL Total Bilirubin 0.4 0.2-1.0 mg/dL Aspartate Amino Transferase (AST) 14 13-40 U/L Alanine Aminotransferase (ALT) 17 7-40 U/L Alkaline Phosphatase 135 H 46-116 U/L B-Type Natriuretic Peptide 75.69 0-100 pg/mL Total Protein 6.1 5.7-8.2 g/dL Albumin 3.7 3.2-4.8 g/dL Test 10/03/24 21:45 10/03/24 18:32 10/03/24 16:35 10/03/24 14:54 Range/Units Sodium Level 129 L 127 L 136-145 mmol/L Potassium Level 4.4 4.4 3.5-5.1 mmol/L Chloride Level 98 94 L 98-107 mmol/L Carbon Dioxide Level 25 30 20-31 mmol/L Anion Gap 6 3 L 5-15 Blood Urea Nitrogen 26 H 24 H 9-23 mg/dL Creatinine 1.13 H 1.26 H 0.550-1.02 mg/dL Glomerular Filtration Rate Calc 47 42 >90 mL/min BUN/Creatinine Ratio 23.0 H 19.0 10.0-20.0 Serum Glucose 107 H 118 H 74-106 mg/dL Hemoglobin A1c 6.1 H <5.7 % A1C Calcium Level 9.4 9.9 8.7-10.4 mg/dL Triglycerides Level 63 < 150 mg/dL Cholesterol Level 119 < 200 mg/dL LDL Cholesterol 30 < 100 mg/dL HDL Cholesterol 68 H 40-59 mg/dL Urine Color Light-yellow Yellow Urine Clarity Clear Clear Urine pH 7.0 5.0-9.0 Urine Specific [place] 1.010 1.001-1.035 Urine Protein Negative Negative Urine Ketones Negative Negative Urine Blood Negative Negative /uL Urine Nitrite Negative Negative Urine Bilirubin Negative Negative Urine Urobilinogen Normal Negative mg/dL Urine Leukocyte Esterase Negative Negative /uL Urine RBC None seen 0 - 4 /hpf Urine WBC 6 0 - 5 /hpf Urine Squamous Epithelial Cells Few <5 /hpf Urine Amorphous Crystals Few None Seen /hpf Urine Bacteria Few H None Seen /hpf Urine Osmolality 352 mOsm/kg Urine Sodium 66 40-220 mmol/L Urine Glucose Normal Normal mg/dL White Blood Count 5.1 4.4-10.8 10^3/uL Red Blood Count 3.55 L 4.0-5.20 10^6/uL Hemoglobin 9.6 L 12.2-16.2 g/dL Hematocrit 29.4 L 36.0-46.0 % Mean Corpuscular Volume 82.8 80.0-100.0 fL Mean Corpuscular Hemoglobin 26.9 L 28.0-32.0 pg Mean Corpuscular Hemoglobin Concent 32.6 32.0-36.0 g/dL Red Cell Distribution Width 16.4 H 11.8-14.3 % Platelet Count 219 140-450 10^3/uL Mean Platelet Volume 7.2 6.9-10.8 fL Neutrophils (%) (Auto) 62.6 37.0-80.0 % Lymphocytes (%) (Auto) 25.2 10.0-50.0 % Monocytes (%) (Auto) 8.8 0.0-12.0 % Eosinophils (%) (Auto) 2.5 0.0-7.0 % Basophils (%) (Auto) 0.9 0.0-2.0 % Neutrophils # (Auto) 3.2 1.6-8.6 10 ^3/uL Lymphocytes # (Auto) 1.3 0.4-5.4 10 ^3/uL Monocytes # (Auto) 0.4 0-1.3 10 ^3/uL Eosinophils # (Auto) 0.1 0-0.8 10 ^3/uL Basophils # (Auto) 0 0-0.2 10 ^3/uL Nucleated Red Blood Cells 0.1 % B-Type Natriuretic Peptide 64.52 0-100 pg/mL Serum Osmolality 273 L 278-298 mOsm/kg Assessment Acute kidney injury secondary hemodynamic mediated Hyponatremia due to excess H2O Chronic diastolic heart failure Hyperlipidemia Recommendations Kidney function is improving Hyponatremia slowly and appropriately improving I discussed with the patient's avoid all NSAIDs use Fluid restrictions Start furosemide 40 mg p.o. daily Add KCl 20 mEq daily Patient is cleared to discharge from Nephrology perspective follow-up in my office two weeks after discharge Patient seen and examined by myself. I discussed my plan of care with the patient and the primary nurse at the bedside I would like to thank for the consult Plan discussed with: Patient MANE DUKE MD Oct 06, 2024 10:57
[2024-10-06] MEDS: SERTRALINE HCL 50 MG TAB PO SCH (11:30)
--- NOTE | 2024-10-06 18:30 | DVHPN2 ---
Subjective looks rested/denies any cough/had fungal pneumonia 3 weeks back/no weakness or numbness/no shortness of breath/declining ivf Changes from previous H/P or p: No Changes Eyes: No Pain, No Vision change, No Conjunctivae inflammation, No Eyelid inflammation, No Other, No Redness ENT: No Ear pain, No Ear discharge, No Nose pain, No Nose discharge, No Nose congestion, No Mouth pain, No Mouth swelling, No Throat pain, No Throat swelling, No Other Cardiovascular: No Chest Pain, No Palpitations, No Orthopnea, No Paroxysmal Noc. Dyspnea, No Edema, No Lt Headedness, No Other Respiratory: No Cough, No Dry; Shortness of breath; No SOB with excertion, No Wheezing, No Hemoptysis, No Pleuritic Pain, No Sputum, No Other Gastrointestinal: No Nausea, No Vomiting, No Abdominal Pain; Diarrhea; No Constipation, No Melena, No Hematochezia, No Other Genitourinary: No Dysuria, No Frequency, No Incontinence, No Hematuria, No Retention, No Other Musculoskeletal: No other, No neck pain, No shoulder pain, No arm pain, No back pain, No hand pain, No leg pain, No foot pain Skin: No Rash, No Lesions, No Jaundice, No Bruising, No Other Objective Vitals Vital Signs Date Time Temp Pulse Resp B/P (MAP) Pulse Ox O2 Delivery O2 Flow Rate FiO2 10/06/24 16:00 98.1 104 17 120/66 (84) 93 98.1 10/06/24 08:00 Room Air* 0 21 Intake/Output Intake and Output 10/06/24 07:00 Intake Total 1356 ml Output Total 1750 ml Balance -394 ml Intake Oral 1356 ml Output Urine Total 1750 ml # Bowel Movements 3 General Appearance: Alert, Oriented X3, No acute distress Lungs: Clear to auscultation, Normal air movement Cardiovascular: Regular rate, Normal S1, Normal S2 Abdomen: Normal bowel sounds, Soft, No tenderness, No hepatospenomegaly Musculoskeletal: Normal sensory function, Normal motor function Neuro: Normal speech, Strength at 5/5 X4 ext, Sensation intact, Cranial nerves 3-12 NL Psych/Mental Status: Mental status NL Medications Current Medications Medications Dose Ordered Sig/Nuha Route Start Time Stop Time Status Last Admin Dose Admin Sodium Chloride 10 ml Q8HR IV 10/03/24 22:00 10/06/24 14:00 10 ML Acetaminophen 650 mg Q6HP PRN PO 10/03/24 21:30 10/06/24 11:55 650 MG Sodium Chloride 1,000 ml @ 60 mls/hr [id number] IV 10/05/24 09:15 Acetaminophen/ Hydrocodone Bitart 1 tab Q6HPRN PRN PO 10/05/24 16:00 10/05/24 16:19 1 TAB Sertraline HCl 25 mg DAILY PO 10/06/24 10:00 10/06/24 11:30 25 MG Furosemide 20 mg DAILY PO 10/07/24 10:00 Ciprofloxacin 500 mg Q12HR PO 10/06/24 22:00 Laboratory Results Laboratory Tests 10/04/24 05:35 10/06/24 06:32 Chemistry Test 10/06/24 06:32 Calcium Level 9.8 mg/dL (8.7-10.4) Urinalysis Test 10/03/24 18:32 10/04/24 05:38 Urine Amorphous Crystals Few /hpf (None Seen) Urine Osmolality 352 mOsm/kg Urine Color Straw (Yellow) Urine Clarity Clear (Clear) Urine pH 6.5 (5.0-9.0) Urine Specific [place] 1.005 (1.001-1.035) Urine Protein Negative (Negative) Urine Ketones Negative (Negative) Urine Blood 1+ /uL (Negative) H Urine Nitrite Negative (Negative) Urine Bilirubin Negative (Negative) Urine Urobilinogen Normal mg/dL (Negative) Urine Leukocyte Esterase Negative /uL (Negative) Urine RBC 3 /hpf (0 - 4) Urine WBC None seen /hpf (0 - 5) Urine Squamous Epithelial Cells Few /hpf (<5) Urine Bacteria Few /hpf (None Seen) H Urine Creatinine 10.84 mg/dL (30.0-125.0) L Urine Sodium 96 mmol/L (40-220) Urine Glucose Normal mg/dL (Normal) Urine Total Protein 7.7 mg/dL (1-14) Labs and/or images reviewed: Labs reviewed by me, Image(s) reviewed by me Assessment/Plan Assessment/Plan hyponatremia- pt is declining fluids/consuled nephrology- was evaluated and per nephro suspects diastolic dysfn and need for diuretic aded echo reviwed htn- normotensive today chronic depression- stable advised if has recurrent hyponatremia- may have to switch her ssri to different class of drugs Plan discussed with: Patient, Other My Orders Orders - MARCOS RÍOS MD Procedure Category Date Status Time *[facility] CONS 10/06/24 Transmitted -[place] 09:23 Urinalysis LAB 10/06/24 Uncollected 14:27 Urine Bacterial [place] 10/06/24 Uncollected Culture 14:27 Furosemide Tablet PHA 10/07/24 In Process (Lasix Tablet) 10:00 Ciprofloxacin Tablet PHA 10/06/24 In Process (Cipro Tablet) 22:00 Furosemide Tablet PHA 10/06/24 Verified (Lasix Tablet) 18:30 Potassium Er Tablet PHA 10/06/24 Verified (Klor-Con Tablet) 18:30 Date of Service: Oct 06, 2024 Billing Provider: MARCOS RÍOS MD Common Visit Codes: [id number] INP/OBS CARE(MOD) MARCOS RÍOS MD Oct 06, 2024 18:30
[2024-10-06] MEDS: FUROSEMIDE 40 MG TAB PO ONE (18:38)
[2024-10-06] MEDS: POTASSIUM CHL 10 Meq TABLET PO ONE (18:38)
[2024-10-06 19:16] LABS: Urine Bacteria FEW /hpf (None Seen); Urine Blood 3+ /uL (Negative); Urine Clarity Turbid (Clear); Urine Color Yellow (Yellow); Urine Hyaline Cast FEW /lpf (0 - 2); Urine Mucus FEW (None Seen); Urine Protein, UAD 1+ (Negative); Urine Specific Gravity 1.024 (1.001-1.035); Urine Squamous Epithelial Cell FEW /hpf (<5); Urine Urobilinogen Normal (Negative); Urine WBC 29 /hpf (0 - 5); Urine pH 6.5 (5.0-9.0)
[2024-10-06] MEDS: MELATONIN 5 MG TAB PO ONE (21:26)
[2024-10-06] MEDS: CIPROFLOXACIN HCL 500 MG TAB PO SCH (21:27)
[2024-10-07 01:00] VITALS: BP 112/70; PULSE 72; RESP 16; TEMP 97.9; O2SAT 95
[2024-10-07 05:00] VITALS: BP 135/78; PULSE 74; RESP 16; TEMP 97.8; O2SAT 95
[2024-10-07 06:37] LABS: Anion Gap 7 (5-15); Carbon Dioxide 28 mmol/L (20-31); Potassium 3.6 mmol/L (3.5-5.1)
[2024-10-07 06:39] LABS: Calcium 9.4 mg/dL (8.7-10.4)
[2024-10-07 06:43] LABS: BUN/Creatinine Ratio 17.9 (10.0-20.0); Blood Urea Nitrogen 20 mg/dL (9-23)
[2024-10-07 06:48] LABS: Chloride 96 mmol/L (98-107); Glucose 107 mg/dL (74-106); Sodium 131 mmol/L (136-145)
[2024-10-07 08:00] VITALS: PULSE 72
[2024-10-07] MEDS: FUROSEMIDE 20 MG TAB PO SCH (08:51)
[2024-10-07 09:00] VITALS: BP 137/64; PULSE 74; RESP 18; TEMP 97.7; O2SAT 94
--- NOTE | 2024-10-07 12:37 | DVHDS2 ---
Discharge Summary Date of Admission Oct 03, 2024 at 21:21 Date of Discharge: Oct 07, 2024 Labs/Diagnostic Data: Laboratory Results Test 10/07/24 06:08 10/06/24 18:00 10/05/24 06:27 10/04/24 05:38 Sodium Level 131 mmol/L (136-145) Potassium Level 3.6 mmol/L (3.5-5.1) Chloride Level 96 mmol/L (98-107) Carbon Dioxide Level 28 mmol/L (20-31) Anion Gap 7 (5-15) Blood Urea Nitrogen 20 mg/dL (9-23) Creatinine 1.12 mg/dL (0.550-1.02) Glomerular Filtration Rate Calc 48 mL/min (>90) BUN/Creatinine Ratio 17.9 (10.0-20.0) Serum Glucose 107 mg/dL (74-106) Calcium Level 9.4 mg/dL (8.7-10.4) Urine Color Yellow (Yellow) Urine Clarity Turbid (Clear) Urine pH 6.5 (5.0-9.0) Urine Specific [place] 1.024 (1.001-1.035) Urine Protein 1+ (Negative) Urine Ketones Negative (Negative) Urine Blood 3+ /uL (Negative) Urine Nitrite Negative (Negative) Urine Bilirubin Negative (Negative) Urine Urobilinogen Normal mg/dL (Negative) Urine Leukocyte Esterase 2+ /uL (Negative) Urine RBC 563 /hpf (0 - 4) Urine WBC 29 /hpf (0 - 5) Urine Squamous Epithelial Cells Few /hpf (<5) Urine Bacteria Few /hpf (None Seen) Urine Hyaline Casts Few /lpf (0 - 2) Urine Mucus Few (None Seen) Urine Glucose Normal mg/dL (Normal) Thyroid Stimulating Hormone (TSH) 1.22 uIU/mL (0.55-4.78) Free Thyroxine (T4) Calculated 1.17 ng/dL (0.89-1.76) Urine Creatinine 10.84 mg/dL (30.0-125.0) Urine Sodium 96 mmol/L (40-220) Urine Total Protein 7.7 mg/dL (1-14) Test 10/04/24 05:35 10/03/24 21:45 10/03/24 18:32 10/03/24 14:54 White Blood Count 4.9 10^3/uL (4.4-10.8) Red Blood Count 3.53 10^6/uL (4.0-5.20) Hemoglobin 9.7 g/dL (12.2-16.2) Hematocrit 28.8 % (36.0-46.0) Mean Corpuscular Volume 81.4 fL (80.0-100.0) Mean Corpuscular Hemoglobin 27.3 pg (28.0-32.0) Mean Corpuscular Hemoglobin Concent 33.6 g/dL (32.0-36.0) Red Cell Distribution Width 16.4 % (11.8-14.3) Platelet Count 232 10^3/uL (140-450) Mean Platelet Volume 7.1 fL (6.9-10.8) Neutrophils (%) (Auto) 52.7 % (37.0-80.0) Lymphocytes (%) (Auto) 33.3 % (10.0-50.0) Monocytes (%) (Auto) 10.3 % (0.0-12.0) Eosinophils (%) (Auto) 2.7 % (0.0-7.0) Basophils (%) (Auto) 1.0 % (0.0-2.0) Neutrophils # (Auto) 2.6 10 ^3/uL (1.6-8.6) Lymphocytes # (Auto) 1.6 10 ^3/uL (0.4-5.4) Monocytes # (Auto) 0.5 10 ^3/uL (0-1.3) Eosinophils # (Auto) 0.1 10 ^3/uL (0-0.8) Basophils # (Auto) 0.1 10 ^3/uL (0-0.2) Nucleated Red Blood Cells 0.1 % Magnesium Level 2.0 mg/dL (1.6-2.6) Total Bilirubin 0.4 mg/dL (0.2-1.0) Aspartate Amino Transferase (AST) 14 U/L (13-40) Alanine Aminotransferase (ALT) 17 U/L (7-40) Alkaline Phosphatase 135 U/L (46-116) B-Type Natriuretic Peptide 75.69 pg/mL (0-100) Total Protein 6.1 g/dL (5.7-8.2) Albumin 3.7 g/dL (3.2-4.8) Hemoglobin A1c 6.1 % A1C (<5.7) Triglycerides Level 63 mg/dL (< 150) Cholesterol Level 119 mg/dL (< 200) LDL Cholesterol 30 mg/dL (< 100) HDL Cholesterol 68 mg/dL (40-59) Urine Amorphous Crystals Few /hpf (None Seen) Urine Osmolality 352 mOsm/kg Serum Osmolality 273 mOsm/kg (278-298) Other Laboratory Tests 10/07/24 06:08 10/04/24 05:35 Brief Hx & Hospital Course: see dictated note Condition at Discharge: Fair Final Diagnosis/Problems List hyponatremia Discharge Disposition: Home Discharge Instruct/Medications Diet: Cardiac 2g Na,low cholest Activity: No Restrictions, As Tolerated Follow Up/Referral: fu with [place] Medications: resume home meds script to pharmacy Discharge Statement: "Patient was advised to return to the ER or call 911 if any headaches, dizziness, shortness of breath, chest pain, abdominal pain, bleeding, fevers, or worsening of medical condition. Patient was counseled about treatment plan, medications, possible side effects, patientverbalized understanding. All questions were answered to the best of my ability. This discharge took greater then 30 minutes in planning, reviewing documentation, counseling the patient, and discussing with other team members." ASSESSMENT ASSESSMENT Assessment hyponatremia Date of Service: Oct 07, 2024 Billing Provider: MEHRDAD CHEEK MD Common Visit Codes: [id number] DISCH DAY >30min MEHRDAD CHEEK MD Oct 07, 2024 12:37
--- NOTE | 2024-10-07 12:41 | CODING ---
Date of Service: Oct 07, 2024 Billing Provider: MEHRDAD CHEEK MD Common Visit Codes: [id number] DISCH DAY >30min Secondary Visit Codes: [id number] CARE PLAN 30 MINUTES MEHRDAD CHEEK MD Oct 07, 2024 12:41
[2024-10-07] MEDS ORDERED: AMOX500T86 PO (12:50)
[2024-10-07] MEDS ORDERED: POTA-211 PO (12:50)
[2024-10-07] MEDS ORDERED: FURO1TAB33 PO (12:50)
[2024-10-07 13:00] VITALS: BP 122/86; PULSE 90; RESP 18; TEMP 98.3; O2SAT 94
--- NOTE | 2024-10-07 16:32 | DVHDS ---
DATE OF DISCHARGE: 10/07/2024 The patient is an 84-year-old lady who was admitted because of abnormal labs. The patient has history of hypertension, hyperlipidemia, and asthma. HOSPITAL COURSE: The patient was noted to be hyponatremic with a sodium of 127 and a creatinine of 1.26. The patient was seen primarily by Dr. Zavala. The patient had echocardiogram done that showed evidence of diastolic dysfunction. The patient was seen in Nephrology consult by Dr. Hastings. The patient had urine culture that was positive for enterococcus. The patient's sodium is improved to 131. The patient will now be discharged home to resume her home medications as well as to be on Lasix 20 mg daily, potassium chloride 10 mEq p.o. daily, and Augmentin 500 mg p.o. b.i.d. for seven days. She will follow up with her primary in one week. FINAL DIAGNOSES: * Hyponatremia. * Likely acute diastolic heart failure. * Urinary tract infection due to enterococcus. * Hypertension. * Chronic depression. Time spent in discharge planning and review of plan with the patient and nursing was 39 minutes. ADVANCE CARE PLANNING: The patient is a full code. Time spent was 21 minutes. MD ALAINA [place]/ELIAS/MERRITT TID: [id number] RECEIPT: [id number] MTD
== END 2024-10-07 16:08 | disposition home or self-care (01) | DRG 640 ==
LOC: ER 14:31 → EDBD 14:31 → TELE 21:21 → EAST 21:23 → TELE-EAST 10-05 07:26
PROVIDERS: ATTEND Internal Medicine
DX: E87.1 Hypo-osmolality and hyponatremia (principal); I50.31 Acute diastolic (congestive) heart failure; N17.0 Acute kidney failure with tubular necrosis; N39.0 Urinary tract infection, site not specified; E86.0 Dehydration; I11.0 Hypertensive heart disease with heart failure; F32.A Depression, unspecified; B95.2 Enterococcus as the cause of diseases classified elsewhere; E78.5 Hyperlipidemia, unspecified; Z79.899 Other long term (current) drug therapy; Z90.710 Acquired absence of both cervix and uterus; Z82.49 Family history of ischemic heart disease and other diseases of the circulatory system
CPT/HCPCS: 36415; 71045; 76775; 80048; 80053; 80061; 81001; 82570; 83036; 83735; 83880; 83930; 83935; 84156; 84300; 84439; 84443; 85025; 87086; 87088; 93306; 97110; 97116; 97163; 97530; G0378